=== PATIENT | male | born 1945 | race Caucasian/White ===

== ENCOUNTER 2018-04-25 11:47 | Inpatient (IN) | payer MEDICARE, MEDICAID ==
[~2018-04-25] VITALS: Ht 165.1 cm; Wt 78.0 kg
[2018-04-25] MEDS ORDERED: OXYCODONE HCL/ACETAMINOPHEN 5/325MG TABLET PO ONE (12:30)
[2018-04-25] MEDS ORDERED: MORPHINE SULFATE 4 MG/ML CPJ (NOT FOR IM USE) IV ONE (14:30)
[2018-04-25 15:00] LABS: BASOPHILS % 0.6 % (0.0-2.0); HEMATOCRIT. 36.2 % (42.0-52.0); HEMOGLOBIN. 12.2 g/dL (14.0-18.0); LYMPHOCYTES % 9.9 % (20.0-50.0); MEAN CORPUSCULAR HEMOGLOBIN 30.8 pg (28.0-32.0); MEAN CORPUSCULAR VOLUME 91.8 fL (80.0-94.0); MONOCYTES % 6.8 % (2.0-8.0); NEUTROPHILS % 81.7 % (40.0-76.0); PLATELET 130 x1000/uL (130-400); RED BLOOD CELL COUNT 3.95 mill/uL (4.7-6.1); RED CELL DISTRIBUTION WIDTH 14.9 % (11.6-14.6)
[2018-04-25 15:08] LABS: CHLORIDE 96 mEq/L (98-107); INR 1.1; PROTHROMBIN TIME 10.7 sec (9.1-11.1)
[2018-04-25] MEDS ORDERED: MORPHINE SULFATE 10 MG/ML CPJ IV NR (15:30)
[2018-04-25] MEDS ORDERED: ONDANSETRON HCL 4MG/2ML INJ IV ONE (17:00)
[2018-04-25] MEDS ORDERED: ACETAMINOPHEN 650MG SUPP PR PRN (17:30)
[2018-04-25] MEDS ORDERED: IPRATROPIUM/ALBUTEROL 0.5-3(2.5)MG/3ML NEB INH PRN (17:30)
[2018-04-25] MEDS ORDERED: DIPHENHYDRAMINE 50MG/ML VIAL IV PRN (17:30)
[2018-04-25] MEDS ORDERED: HYDRALAZINE 20MG/ML VIAL IV NR (18:34)
[2018-04-25] MEDS: HYDRALAZINE 20MG/ML VIAL IV PRN (19:09)
[2018-04-25] MEDS ORDERED: HYDROMORPHONE HCL/PF 2MG/ML CPJ IV NR (22:00)
[2018-04-25] MEDS: HYDROMORPHONE HCL/PF 2MG/ML CPJ IV PRN (22:11)
[2018-04-25] MEDS ORDERED: DEXT 5%/0.9% NACL 1,000 ML IV SCH (22:38)
[2018-04-25] MEDS: ONDANSETRON HCL 4MG/2ML INJ IV PRN (23:56)
[2018-04-26] VITALS: BP 160/75
[2018-04-26 00:04] VITALS: BP 160/75
[2018-04-26 02:02] LABS: CREATINE KINASE 72 IU/L (39-308)
[2018-04-26 02:03] LABS: CREATINE KINASE MB FRACTION < 1.0 ng/mL (0.5-3.6)
[2018-04-26 04:00] VITALS: BP 134/77
[2018-04-26 08:00] VITALS: BP 172/70
[2018-04-26] MEDS: ONDANSETRON HCL 4MG/2ML INJ IV PRN (08:12)
[2018-04-26] MEDS ORDERED: ENOXAPARIN 30MG/0.3ML SYR SUBCUT SCH (09:00)
[2018-04-26] MEDS: PANTOPRAZOLE SODIUM 40 MG/VIAL IV SCH (09:20)
[2018-04-26] MEDS: HYDRALAZINE 20MG/ML VIAL IV PRN (09:21)
[2018-04-26 10:11] LABS: HEMATOCRIT. 34.7 % (42.0-52.0); HEMOGLOBIN. 11.7 g/dL (14.0-18.0); MEAN CORPUSCULAR HEMOGLOBIN 31.1 pg (28.0-32.0); MEAN CORPUSCULAR VOLUME 92.4 fL (80.0-94.0); MEAN PLATELET VOLUME 10.2 fl (7.4-10.4); PLATELET 126 x1000/uL (130-400); RED BLOOD CELL COUNT 3.76 mill/uL (4.7-6.1); RED CELL DISTRIBUTION WIDTH 15.1 % (11.6-14.6)
[2018-04-26 10:46] LABS: PLATELET ESTIMATE SLIGHTLY DECREASED
[2018-04-26 12:21] LABS: CHLORIDE 97 mEq/L (98-107)
[2018-04-26 12:28] LABS: LDL CHOLESTEROL 58 mg/dL (5-100)
[2018-04-26 12:29] LABS: CREATINE KINASE 67 IU/L (39-308); CREATINE KINASE MB FRACTION < 1.0 ng/mL (0.5-3.6); HDL CHOLESTEROL 52 mg/dL (40-59)
[2018-04-26 12:30] LABS: T4 FREE 1.34 ng/dL (0.76-1.46)
[2018-04-26] MEDS: HYDROMORPHONE HCL/PF 2MG/ML CPJ IV PRN (15:39)
[2018-04-26] MEDS: AMLODIPINE 5MG TABLET PO SCH (18:09)
[2018-04-26 20:31] VITALS: BP 160/65
[2018-04-27] VITALS (7 sets, daily range): BP systolic 142–190; BP diastolic 51–82
[2018-04-27] MEDS: DEXT 5%/0.9% NACL 1,000 ML IV SCH (01:17)
[2018-04-27 05:55] LABS: HEMATOCRIT 32.6 % (42.0-52.0); HEMOGLOBIN 11.1 g/dL (14.0-18.0); MEAN CORPUSCULAR HEMOGLOBIN 31.5 pg (28.0-32.0); MEAN CORPUSCULAR VOLUME 92.4 fL (80.0-94.0); PLATELET 111 x1000/uL (130-400); RED BLOOD CELL COUNT 3.53 mill/uL (4.7-6.1); RED CELL DISTRIBUTION WIDTH 15.7 % (11.6-14.6)
[2018-04-27 05:58] LABS: PROTHROMBIN TIME 10.5 sec (9.1-11.1)
[2018-04-27] MEDS: AMLODIPINE 5MG TABLET PO SCH (08:17)
[2018-04-27] MEDS: PANTOPRAZOLE SODIUM 40 MG/VIAL IV SCH (08:31)
[2018-04-27] MEDS ORDERED: BUPIVACAINE HCL/PF 0.5% (5MG/ML) 10ML ONE (12:45)
[2018-04-27] MEDS ORDERED: NORMAL SALINE 0.9% 10 ML SYR ONE ×2 (12:46→12:47)
[2018-04-27] MEDS ORDERED: BACITRACIN 50,000 UNITS/VIAL ONE (12:46)
[2018-04-27] MEDS ORDERED: VANCOMYCIN HCL 500 MG/VIAL ONE (12:46)
[2018-04-27] MEDS ORDERED: MIDAZOLAM HCL 2 MG/2 ML VIAL ONE (15:04)
[2018-04-27] MEDS ORDERED: FENTANYL CITRATE/PF 50MCG/ML 2ML VIAL ONE (15:04)
[2018-04-27] MEDS ORDERED: PROPOFOL 200MG/20ML VIAL IV ONE (15:04)
[2018-04-27] MEDS ORDERED: DEXAMETHASONE 4MG/ML 1ML VIAL ONE (15:10)
[2018-04-27] MEDS ORDERED: ONDANSETRON HCL 4MG/2ML INJ ONE (15:10)
[2018-04-27] MEDS ORDERED: HYDROMORPHONE HCL/PF 2MG/ML CPJ IV PRN (15:45)
[2018-04-27] MEDS ORDERED: MEPERIDINE HCL/PF 25MG/ML CPJ IV PRN (15:45)
[2018-04-27] MEDS ORDERED: ONDANSETRON HCL 4MG/2ML INJ IV PRN (15:45)
[2018-04-27] MEDS ORDERED: ONDANSETRON INJ IV PRN (16:34)
[2018-04-27] MEDS ORDERED: HYDROMORPHONE PCA 10MG/50ML IV PRN (16:34)
[2018-04-27] MEDS ORDERED: DIPHENHYDRAMINE INJ IV PRN (16:34)
[2018-04-27] MEDS ORDERED: NALOXONE INJ IV PRN (16:35)
[2018-04-27] MEDS: LABETALOL HCL 20MG/4ML CARPUJECT IV PRN ×3 (16:35→17:33)
[2018-04-27] MEDS: CEFAZOLIN 1000MG PREMIX 50 ML IV SCH (19:58)
[2018-04-27] MEDS: HYDRALAZINE 20MG/ML VIAL IV PRN (19:58)
[2018-04-28] MEDS: DEXT 5%/0.9% NACL 1,000 ML IV SCH (00:56)
[2018-04-28] MEDS: CEFAZOLIN 1000MG PREMIX 50 ML IV SCH ×2 (03:46→12:20)
[2018-04-28 04:00] VITALS: BP 121/61
[2018-04-28 06:36] LABS: HEMATOCRIT. 32.1 % (42.0-52.0); HEMOGLOBIN. 10.9 g/dL (14.0-18.0); MEAN CORPUSCULAR HEMOGLOBIN 31.4 pg (28.0-32.0); MEAN CORPUSCULAR VOLUME 92.7 fL (80.0-94.0); MEAN PLATELET VOLUME 10.5 fl (7.4-10.4); PLATELET 123 x1000/uL (130-400); RED BLOOD CELL COUNT 3.46 mill/uL (4.7-6.1); RED CELL DISTRIBUTION WIDTH 15.3 % (11.6-14.6)
[2018-04-28 08:00] VITALS: BP 151/69
[2018-04-28] MEDS: AMLODIPINE 5MG TABLET PO SCH (08:56)
[2018-04-28] MEDS: ENOXAPARIN 30MG/0.3ML SYR SUBCUT SCH (08:56)
[2018-04-28 11:42] VITALS: BP 158/69
[2018-04-28 12:41] LABS: PLATELET ESTIMATE NORMAL
[2018-04-28 16:06] VITALS: BP 166/65
[2018-04-28 20:00] VITALS: BP 144/56
[2018-04-29] VITALS: BP 145/61
[2018-04-29 04:00] VITALS: BP 157/67
[2018-04-29 06:56] LABS: HEMATOCRIT 27.3 % (42.0-52.0); HEMOGLOBIN 9.4 g/dL (14.0-18.0); MEAN CORPUSCULAR HEMOGLOBIN 31.7 pg (28.0-32.0); MEAN CORPUSCULAR VOLUME 92.2 fL (80.0-94.0); PLATELET 129 x1000/uL (130-400); RED BLOOD CELL COUNT 2.96 mill/uL (4.7-6.1)
[2018-04-29 08:00] VITALS: BP 184/80
[2018-04-29] MEDS: ENOXAPARIN 30MG/0.3ML SYR SUBCUT SCH (08:50)
[2018-04-29] MEDS: AMLODIPINE 5MG TABLET PO SCH (08:50)
[2018-04-29] MEDS: HYDRALAZINE 20MG/ML VIAL IV PRN (09:01)
[2018-04-29 11:42] LABS: TOTAL IRON BINDING CAPACITY 181 ug/dL (250-450)
[2018-04-29 12:00] VITALS: BP 146/65
[2018-04-29] MEDS ORDERED: HYDROMORPHONE HCL/PF 2MG/ML CPJ IV PRN (12:15)
[2018-04-29 16:00] VITALS: BP 157/72
[2018-04-29 16:45] VITALS: BP 157/72
[2018-04-29] MEDS ORDERED: CLONIDINE 0.1MG TABLET PO NR (20:30)
== END 2018-04-29 20:30 | DRG 480 ==
LOC: ER 11:58 → 6WST 15:17 → EDBEDREQ 16:01 → SUPCPDRO 17:27 → ENRESERV 21:11
PROVIDERS: ADMIT Internal Medicine; ATTEND Internal Medicine
PROC: 5A1D70Z Performance of Urinary Filtration, Intermittent, Less than 6 Hours Per Day (ICD-10-PCS; 2018-04-26)
PROC: 0QS704Z Reposition Left Upper Femur with Internal Fixation Device, Open Approach (ICD-10-PCS; principal; 2018-04-27 14:30)
DX: S72.142A Displaced intertrochanteric fracture of left femur, initial encounter for closed fracture (principal); I50.33 Acute on chronic diastolic (congestive) heart failure; N18.6 End stage renal disease; I13.2 Hypertensive heart and chronic kidney disease with heart failure and with stage 5 chronic kidney disease, or end stage renal disease; D72.825 Bandemia; D63.8 Anemia in other chronic diseases classified elsewhere; E86.0 Dehydration; R73.9 Hyperglycemia, unspecified; D69.6 Thrombocytopenia, unspecified; W01.0XXA Fall on same level from slipping, tripping and stumbling without subsequent striking against object, initial encounter; Y93.89 Activity, other specified; Y92.89 Other specified places as the place of occurrence of the external cause; Y99.8 Other external cause status; Z99.2 Dependence on renal dialysis
CPT/HCPCS: 36415; 71045; 73502; 73503; 73552; 80048; 80061; 82550; 82553; 83036; 83540; 83550; 84439; 84443; 85027; 93306; 93970; 96361; 96374; 96375; 97116; 97162; 99285; A4216; C1893; C9113; J0360; J0690; J1100; J1170; J1650; J2250; J2270; J2405; J2704; J3010; J3370; J3490; J7042